=== PATIENT | female | born 1980 | race Caucasian/White ===

== ENCOUNTER 2016-07-12 06:58 | Emergency (ER) | payer OTHER ==
[~2016-07-12] VITALS: Ht 167.6 cm; Wt 70.5 kg
[~2016-07-12 06:58] MED LIST: GABA100C4 PO
[2016-07-12 07:03] VITALS: BP 103/72; PULSE 97; RESP 16; TEMP 97.7; O2SAT 93
[2016-07-12] MEDS ORDERED: GABA800T PO (07:17)
[2016-07-12] MEDS ORDERED: PROPARACAINE HCL 0.5% OPHT SOLN 15 ML BTL LEFT EYE ONE (07:30)
[2016-07-12] MEDS ORDERED: PERC5TAB12 PO (07:47)
[2016-07-12] MEDS ORDERED: ERYTOIN10 LEFT EYE (07:47)
--- NOTE | 2016-07-12 07:51 | PD ---
HPI Chief Complaint: Eye Problems/Injury Time Seen by Provider: 07:13 Travel History International Travel<30 days: No Contact w/Intl Traveler<30days: No Traveled to known affect area: No History of Present Illness HPI This patient complains of left eye pain and irritation and redness. She woke up this morning and felt like her left eye was itching. She rubbed it with her shirt. She developed pain in her left eye. There is no eye drainage. Her vision is normal usual baseline. She does require corrective lenses in the form of glasses but no contacts are worn. Pain severity is moderate PFSH Past Medical History Asthma: Yes Anxiety: Yes Cancer: No Cardiovascular Problems: No Diabetes: No Diminished Hearing: No Glaucoma: No Hepatitis: No Hiatal Hernia: No Hypertension: No Psychiatric: Yes (ANOREXIA NERVOSA) Respiratory: Yes (hx of asthma) Thyroid Disease: No Influenza Vaccination: No ?: Not LMP: IRREGULAR : 0 Para: 0 Past Surgical History Oral Surgery: Yes (teeth extracted) Pacemaker: No Other Surgery: Yes (ABCESS REMOVED FROM BREAST ) Social History Alcohol Use: Yes (2 LAVELL PER NIGHT) Tobacco Use: Yes (ONEPPD) Substance Use: No Allergies-Medications (Allergen,Severity, Reaction): Coded Allergies: Clindamycin (Verified Allergy, Severe, HIVES, 07/12/16) and swelling Amoxicillin (Verified Allergy, Mild, HIVES, 07/12/16) Reported Meds & Prescriptions Reported Meds & Active Scripts Active Reported Gabapentin 800 Mg Tab 800 Mg PO TID Review of Systems General / Constitutional: No: Fever Eyes: Positive: Redness, Foreign Body Sensation, Pain HENT: No: Headaches Cardiovascular: No: Chest Pain or Discomfort Physical Exam Narrative NECK: Symmetrical appearance, midline trachea. No mass or crepitus. Thyroid without enlargement, tenderness, or mass. Psych: Normal mood and affect. Normal insight and judgment. SKIN: Inspection shows no rash or ulcers. Palpation shows no induration or nodules. Left sclera shows some diffuse injection. Pupil function is normal I placed a drop of proparacaine in the left eye I did a fluorescein exam which shows a large corneal abrasion over the lower central region. No foreign body seen. Lids are everted and nothing seen Data Data Last Documented VS Vital Signs Date Time Temp Pulse Resp B/P Pulse Ox O2 Delivery O2 Flow Rate FiO2 07/12/16 07:03 97.7 97 16 103/72 93 Orders Proparacaine 0.5% Opth Soln (Alcaine 0.5 (07/12/16 07:30) [facility] Medical Decision Making Medical Screen Exam Complete: Yes Emergency Medical Condition: Yes Medical Record Reviewed: Yes Differential Diagnosis Corneal abrasion, foreign body, conjunctivitis Narrative Course I have reviewed the patient's electronic medical record. Patient is a large corneal abrasion left eye. I prescribed her erythromycin ointment and something for pain Symptoms resolved after the anesthetic drop Recommend she follow up with ophthalmology Diagnosis Primary Impression: Left cornea abrasion Qualified Code: S05.02XA - Left cornea abrasion, initial encounter Additional Instructions: The patient was advised to follow up with ophthalmology The patient was warned about potential sedation for the medications they will receive on prescription. Med/Other Pt SpecificInfo: Prescription(s) given Scripts Oxycodone-Acetaminophen (Percocet)5-325 mg Tab1 Tab PO Q6H PRN (PAIN) #20 TAB Ref 0 Prov:Carlitos Griffin MD 07/12/16 Erythromycin Opth Oint 5 Mg/Gm Oint1 Applic LEFT EYE QID #1 TUBE Ref 0 Prov:Carlitos Griffin MD 07/12/16 Disposition: 01 DISCHARGE HOME Condition: Stable Carlitos Griffin MD Jul 12, 2016 07:51
== END 2016-07-12 08:25 | disposition home or self-care (01) ==
LOC: PHED 06:58
DX: S05.02XA Injury of conjunctiva and corneal abrasion without foreign body, left eye, initial encounter (principal); Y93.89 Activity, other specified; Y92.9 Unspecified place or not applicable
CPT/HCPCS: 99283

== ENCOUNTER 2016-12-09 12:40 | Emergency (ER) | payer OTHER ==
[~2016-12-09 12:40] MED LIST changes: +ERYTOIN10 LEFT EYE; -GABA100C4 PO; +GABA800T PO; +PERC5TAB12 PO
[2016-12-09 12:46] VITALS: BP 116/77; PULSE 103; RESP 18; TEMP 99.6; O2SAT 95
[2016-12-09] MEDS ORDERED: MELO7.5T4 PO (13:05)
[2016-12-09] MEDS ORDERED: CYMB30CA PO (13:05)
--- NOTE | 2016-12-09 13:28 | PD ---
HPI Chief Complaint: Musculoskeletal Complaint Time Seen by Provider: 13:24 Travel History International Travel<30 days: No Contact w/Intl Traveler<30days: No Traveled to known affect area: No History of Present Illness HPI 36-year-old female presents to the emergency department for evaluation of right wrist pain that started last night when she tripped and fell. She states that she was carrying a large bag of dog food and cat litter when she tripped and fell hitting her nose and trying to catch himself with her right hand. She is right-handed. The patient reports pain and swelling to her right wrist. Patient reports history of neuropathy. She states that she is currently on Cymbalta, gabapentin, meloxicam. She denies any LOC. No lethargy or altered mental status. She denies any headache. No neck pain or back pain. No chest pain or abdominal pain. No vomiting. She takes no anticoagulants and has no bleeding disorders. Patient reports minimal pain to abrasion. Patient is unsure if her tetanus immunization is up-to-date. PFSH Past Medical History Asthma: Yes Anxiety: Yes Cancer: No Cardiovascular Problems: No Diabetes: No Diminished Hearing: No Glaucoma: No Hepatitis: No Hiatal Hernia: No Hypertension: No Psychiatric: Yes (ANOREXIA NERVOSA) Respiratory: Yes (hx of asthma) Thyroid Disease: No Influenza Vaccination: No ?: Not : 0 Para: 0 Past Surgical History Oral Surgery: Yes (teeth extracted) Pacemaker: No Other Surgery: Yes (ABCESS REMOVED FROM BREAST ) Social History Alcohol Use: Yes (2 LAVELL PER NIGHT) Tobacco Use: Yes (ONEPPD) Substance Use: No Allergies-Medications (Allergen,Severity, Reaction): Coded Allergies: Clindamycin (Verified Allergy, Severe, HIVES, 07/12/16) and swelling Amoxicillin (Verified Allergy, Mild, HIVES, 07/12/16) Reported Meds & Prescriptions Reported Meds & Active Scripts Active Reported Meloxicam 7.5 Mg Tab 7.5 Mg PO DAILY Cymbalta DR (Duloxetine HCl) 30 Mg Capdr 30 Mg PO DAILY Gabapentin 800 Mg Tab 800 Mg PO TID Review of Systems Except as stated in HPI: all other systems reviewed are Neg Physical Exam Narrative GENERAL: Well-nourished, well-developed female patient, ambulatory. Afebrile. SKIN: Focused skin assessment warm/dry. Patient is abrasion to the upper nose. HEAD: Normocephalic. ENT: Mucosa pink and moist. No erythema or exudates. No uvular edema. No uvular , palatal, or tonsillar deviation. Airway patent. Nasal turbinates appear normal without nasal blood, purulent drainage or septal hematoma. Bilateral tympanic membranes are clear without erythema or perforation. EYES: No scleral icterus. No injection or drainage. NECK: Supple, trachea midline. No JVD or lymphadenopathy. CARDIOVASCULAR: Regular rate and rhythm without murmurs, gallops, or rubs. Right radial pulse is 2+. RESPIRATORY: Breath sounds equal bilaterally. No accessory muscle use. Lungs sounds are clear to auscultation. GASTROINTESTINAL: Abdomen soft, non-tender, nondistended. MUSCULOSKELETAL: No cyanosis. Patient has swelling and tenderness over right medial and lateral wrist, worse over the right medial wrist. No snuffbox tenderness. BACK: Nontender without obvious deformity. No CVA tenderness. No midline spinal tenderness. She has full rotation of the cervical spine without pain or stiffness. Data Data Last Documented VS Vital Signs Date Time Temp Pulse Resp B/P Pulse Ox O2 Delivery O2 Flow Rate FiO2 12/09/16 12:46 99.6 103 18 116/77 95 Orders Morphine Inj (Morphine Inj) (12/09/16 13:30) Ondansetron Odt (Zofran Odt) (12/09/16 13:30) Wound Care (12/09/16 13:23) Tetanus/Diphtheria Tox Adult (Tetanus/Di (12/09/16 13:30) Wrist, Complete ([id number]) (12/09/16 ) Forearm (2vws) (12/09/16 ) [facility] Medical Decision Making Medical Screen Exam Complete: Yes Emergency Medical Condition: Yes Medical Record Reviewed: Yes Interpretation(s) x-ray right wrist - CONCLUSION: Nonspecific soft tissue swelling. No fracture or subluxation of the right wrist. x-ray right forearm - CONCLUSION: Intact right forearm. Distal soft tissue swelling, nonspecific. Differential Diagnosis Fracture versus sprain versus contusion versus abrasion Narrative Course 36-year-old female presents to the emergency department for evaluation of right wrist injury after she tripped and fell last night. According [place] [facility] had rules, imaging is not indicated at this time. X-ray of the right wrist and right forearm are ordered and pending. Tetanus immunization is updated. Patient is given morphine 4 mg IM, Zofran 4 mg ODT. X-ray of the right wrist shows nonspecific soft tissue swelling, no fracture or subluxation of the right wrist. X-ray of the right forearm is intact right forearm, distal soft tissue swelling, nonspecific. Patient will be placed in a Velcro wrist splint. She'll be discharged prescription for ibuprofen for pain. She verbalizes agreement and understanding. The patient was discharged in stable condition with instructions, including return instructions and follow up instructions. Diagnosis Primary Impression: Right wrist sprain Qualified Code: S63.501A - Sprain of right wrist, initial encounter Referrals: Primary Care Physician call for appointment Patient Instructions: General Instructions, Wrist Sprain (ED) Additional Instructions: Take ibuprofen as instructed as needed with food for pain. Do not take other anti-inflammatories with this including meloxicam, Aleve. Ice for 20 minutes 4-5 times daily. Wear Velcro wrist splint as needed for support. Follow-up with your primary care physician. Return to the emergency department for any acute worsening of symptoms. Med/Other Pt SpecificInfo: Prescription(s) given Scripts Ibuprofen 600 Mg [id number] Mg PO TID PRN (PAIN SCALE 1 TO 10) #21 TAB Ref 0 Prov:Demi Marinelli 12/09/16 Disposition: 01 DISCHARGE HOME Condition: Stable Demi Marinelli Dec 09, 2016 13:28
[2016-12-09] MEDS ORDERED: TETANUS/DIPHTHERIA TOXOID ADULT 0.5 ML VIAL IM ONE (13:30)
[2016-12-09] MEDS ORDERED: MORPHINE SULFATE 4 MG/ML INJ IM ONE (13:30)
[2016-12-09] MEDS ORDERED: ONDANSETRON ODT 4 MG TAB PO ONE (13:30)
--- NOTE | 2016-12-09 14:17 | RADRPT ---
EXAM DATE/TIME: 12/09/2016 13:44 [facility] COMPARISON: No previous studies available for comparison. INDICATIONS : Right wrist pain status post fall from standing. MEDICAL HISTORY : None. SURGICAL HISTORY : None. ENCOUNTER: Initial ACUITY: 1 day PAIN SCORE: 10/10 LOCATION: Right wrist. FINDINGS: There is dorsal predominant soft tissue swelling overlying the carpus. No fractures or subluxations a re demonstrated. No radiopaque foreign body. CONCLUSION: Nonspecific soft tissue swelling. No fracture or subluxation of the right wrist. Izaiah Spence MD on December 09, 2016 at 14:15 Board Certified Radiologist. This report was verified electronically.
--- NOTE | 2016-12-09 14:17 | RADRPT ---
EXAM DATE/TIME: 12/09/2016 13:43 [facility] COMPARISON: No previous studies available for comparison. INDICATIONS : Right wrist pain status post fall from standing. MEDICAL HISTORY : None. SURGICAL HISTORY : None. ENCOUNTER: Initial ACUITY: 1 day PAIN SCORE: 10/10 LOCATION: Right wrist. FINDINGS: Soft tissue swelling seen dorsally of the distal forearm. Right radius and ulna are intact and have n ormal morphology. No radiopaque foreign body demonstrated. CONCLUSION: Intact right forearm. Distal soft tissue swelling, nonspecific. Izaiah Spence MD on December 09, 2016 at 14:14 Board Certified Radiologist. This report was verified electronically.
[2016-12-09] MEDS ORDERED: IBUP-232 PO (14:24)
== END 2016-12-09 14:45 | disposition home or self-care (01) ==
LOC: PHED 12:40
DX: S63.501A Unspecified sprain of right wrist, initial encounter (principal); S00.31XA Abrasion of nose, initial encounter; W01.0XXA Fall on same level from slipping, tripping and stumbling without subsequent striking against object, initial encounter; Y93.89 Activity, other specified; Z23 Encounter for immunization
CPT/HCPCS: 73090; 73110; 90471; 90714; 96372; 99284; J2270; L3908

== ENCOUNTER 2017-06-09 18:17 | Emergency (ER) | payer OTHER ==
[~2017-06-09] VITALS: Ht 170.2 cm; Wt 75.2 kg
[~2017-06-09 18:17] MED LIST changes: +CYMB30CA PO; -ERYTOIN10 LEFT EYE; +IBUP-232 PO; +MELO7.5T27 PO; -PERC5TAB12 PO
[2017-06-09 18:25] VITALS: BP 111/76; PULSE 98; RESP 16; TEMP 98.1; O2SAT 95
[2017-06-09] MEDS ORDERED: DULO1CAP PO (19:26)
[2017-06-09] MEDS ORDERED: NABU1TAB37 PO (19:26)
[2017-06-09] MEDS ORDERED: VENTAER INH (19:26)
[2017-06-09] MEDS ORDERED: INDO50CA PO (19:26)
[2017-06-09] MEDS ORDERED: DICL1KIT5 TOPICAL (19:26)
[2017-06-09] MEDS ORDERED: CYMB30CA PO ×2 (19:28→19:30)
--- NOTE | 2017-06-09 19:28 | PD ---
HPI Chief Complaint: Edema Time Seen by Provider: 19:13 Travel History International Travel<30 days: No Contact w/Intl Traveler<30days: No Traveled to known affect area: No History of Present Illness HPI The patient is a 37-year-old female that states she has need of a refill on Cymbalta, she doesn't see her Dr. Nielson 12% she has run out of it today. She also takes a friend's Subutex and she states her feet swell every time she takes this. She does have feet swelling. Her been swelling for 4 days. She states she will no longer take any more Subutex. The patient has chronic pain and is on gabapentin and meloxicam for this. She does have a history of alcohol abuse and possible opiate abuse. PFSH Past Medical History Asthma: Yes Anxiety: Yes Cancer: No Cardiovascular Problems: No Diabetes: No Diminished Hearing: No Glaucoma: No Hepatitis: No Hiatal Hernia: No Hypertension: No Psychiatric: Yes (ANOREXIA NERVOSA) Respiratory: Yes (hx of asthma) Thyroid Disease: No ?: Not : 0 Para: 0 Past Surgical History Oral Surgery: Yes (teeth extracted) Pacemaker: No Other Surgery: Yes (ABCESS REMOVED FROM BREAST ) Social History Alcohol Use: Yes (2 LAVELL PER NIGHT) Tobacco Use: Yes (ONEPPD) Substance Use: No Allergies-Medications (Allergen,Severity, Reaction): Coded Allergies: clindamycin (Unverified Allergy, Severe, HIVES, 06/09/17) and swelling amoxicillin (Unverified Allergy, Mild, HIVES, 06/09/17) Reported Meds & Prescriptions Reported Meds & Active Scripts Active Ibuprofen 600 Mg Tab 600 Mg PO TID PRN Reported Meloxicam 7.5 Mg Tab 7.5 Mg PO DAILY Cymbalta DR (Duloxetine HCl) 30 Mg Capdr 30 Mg PO DAILY Gabapentin 800 Mg Tab 800 Mg PO TID Review of Systems Except as stated in HPI: all other systems reviewed are Neg Physical Exam Narrative GENERAL: Well-nourished, well-developed patient in no apparent distress except for the bilateral feet swelling. Her vital signs are normal. SKIN: Focused skin assessment warm/dry. HEAD: Normocephalic. EYES: No scleral icterus. No injection or drainage. NECK: Supple, trachea midline. No JVD or lymphadenopathy. CARDIOVASCULAR: Regular rate and rhythm without murmurs, gallops, or rubs. RESPIRATORY: Breath sounds equal bilaterally. No accessory muscle use. GASTROINTESTINAL: Abdomen soft, non-tender, nondistended. MUSCULOSKELETAL: No cyanosis, but there is very slight edema and slight erythema over both feet. There is no edema of the lower leg. Homans sign is negative and there is no cord palpated in the calf.. BACK: Nontender without obvious deformity. No CVA tenderness. Data Data Last Documented VS Vital Signs Date Time Temp Pulse Resp B/P (MAP) Pulse Ox O2 Delivery O2 Flow Rate FiO2 06/09/17 18:25 98.1 98 16 111/76 (88) 95 MDM Medical Decision Making Medical Screen Exam Complete: Yes Emergency Medical Condition: Yes Medical Record Reviewed: Yes Differential Diagnosis Medication side effect, medication refill, drug seeking behavior Narrative Course The patient wanted to leave the soonest she found out that she was not getting any narcotic pain medications. The patient will discontinue taking her friend' s Subutex. She is given a refill of Cymbalta 30 mg #10. Diagnosis Primary Impression: Medication side effect Additional Impression: Medication refill Additional Instructions: Follow-up with your primary care physician on the as scheduled. You are given enough Cymbalta the last few until then. Do not take any more Subutex. Med/Other Pt SpecificInfo: Prescription(s) given Scripts Duloxetine (Cymbalta DR) 30 Mg Capdr 30 MG PO DAILY, #10 CAP 0 Refills Prov: Dustin Alvarez MD 06/09/17 Disposition: 01 DISCHARGE HOME Condition: Stable Dustin Alvarez MD Jun 09, 2017 19:28
== END 2017-06-09 19:40 | disposition home or self-care (01) ==
LOC: PHED 18:17
DX: Z76.0 Encounter for issue of repeat prescription (principal); T40.4X5A Adverse effect of other synthetic narcotics, initial encounter; M79.89 Other specified soft tissue disorders; G89.29 Other chronic pain; J45.909 Unspecified asthma, uncomplicated; F41.9 Anxiety disorder, unspecified; F17.200 Nicotine dependence, unspecified, uncomplicated; Z79.899 Other long term (current) drug therapy; Z88.0 Allergy status to penicillin
CPT/HCPCS: 99283

== ENCOUNTER 2017-08-21 11:47 | Emergency (ER) | payer OTHER ==
[~2017-08-21] VITALS: Ht 170.2 cm; Wt 69.0 kg
[~2017-08-21 11:47] MED LIST changes: +DICL1KIT5 TOPICAL; +DULO1CAP PO; +INDO50CA PO; +NABU1TAB37 PO; +VENTAER INH
[2017-08-21 11:54] VITALS: BP 134/91; PULSE 84; RESP 18; TEMP 97.3; O2SAT 98
--- NOTE | 2017-08-21 12:14 | PD ---
HPI Chief Complaint: Injury Time Seen by Provider: 11:56 Travel History International Travel<30 days: No Contact w/Intl Traveler<30days: No Traveled to known affect area: No History of Present Illness HPI 37-year-old female presents emergency department for evaluation of right heel pain that started approximate 5 days ago. Patient states that she was playing with her daughter in the pool and believes she may have jumped too much resulting in this heel pain. Patient states her pain is throbbing, moderate in severity, worse with movement. Says she is used every [id number] ibuprofen and her neuropathy medication, gabapentin, without significant improvement. She denies any unusual numbness or tingling although states she does have chronic tingling in her toes. States pain is located in the right lateral aspect of the heel and points to the posterior talofibular ligament. Says she has some diminished range of motion secondary to pain. She denies any inversion type of injuries. Denies any other inciting events. PFSH Past Medical History Asthma: Yes Anxiety: Yes Depression: Yes Cancer: No Cardiovascular Problems: No Diabetes: No Diminished Hearing: No Glaucoma: No Hepatitis: No Hiatal Hernia: No Hypertension: No Neurologic: Yes (JONA LE NEUROPATHY) Psychiatric: Yes (ANOREXIA NERVOSA) Respiratory: Yes (hx of asthma) Thyroid Disease: No Influenza Vaccination: No ?: Not LMP: DOESNT REMEMBER : 0 Para: 0 Past Surgical History Oral Surgery: Yes (teeth extracted) Pacemaker: No Other Surgery: Yes (ABCESS REMOVED FROM BREAST and Buttock) Social History Alcohol Use: Yes (2 LAVELL PER NIGHT) Tobacco Use: Yes (ONEPPD) Substance Use: No Allergies-Medications (Allergen,Severity, Reaction): Coded Allergies: clindamycin (Verified Allergy, Severe, HIVES, 06/09/17) and swelling amoxicillin (Verified Allergy, Mild, HIVES, 06/09/17) Reported Meds & Prescriptions Reported Meds & Active Scripts Active Cymbalta DR (Duloxetine HCl) 30 Mg Capdr 30 Mg PO DAILY Ibuprofen 600 Mg Tab 600 Mg PO TID PRN Reported Ventolin Hfa 18 GM Inh (Albuterol Sulfate) 90 Mcg/Act Aer 2 Puff INH Q4-6H PRN Diclo Gel Topical (Diclofenac Sodium) 1% Gel 1 Applic TOPICAL QID Meloxicam 7.5 Mg Tab 7.5 Mg PO DAILY Cymbalta DR (Duloxetine HCl) 30 Mg Capdr 30 Mg PO DAILY Gabapentin 800 Mg Tab 800 Mg PO TID Review of Systems Except as stated in HPI: all other systems reviewed are Neg Physical Exam Narrative GENERAL: Well-nourished, well-developed patient. SKIN: Focused skin assessment warm/dry. HEAD: Normocephalic. EYES: No scleral icterus. No injection or drainage. NECK: Supple, trachea midline. No JVD or lymphadenopathy. CARDIOVASCULAR: Regular rate and rhythm without murmurs, gallops, or rubs. RESPIRATORY: Breath sounds equal bilaterally. No accessory muscle use. MUSCULOSKELETAL: No cyanosis, or edema. Right foot-TTP to the posterior TFL and lateral heel. Edema and ecchymosis present in the immediate area. Limited range of motion to flexion extension of the ankle secondary to pain. Neurovascular intact. BACK: Nontender without obvious deformity. No CVA tenderness. Data Data Last Documented VS Vital Signs Date Time Temp Pulse Resp B/P (MAP) Pulse Ox O2 Delivery O2 Flow Rate FiO2 08/21/17 11:54 97.3 84 18 134/91 (105) 98 Room Air Orders Orders Foot, Complete ([id number]) (08/21/17 ) MDM Medical Decision Making Medical Screen Exam Complete: Yes Emergency Medical Condition: Yes Differential Diagnosis Right heel fracture, right foot fracture, ankle sprain Narrative Course 37 y female with a history of neuropathy presents emergency department for evaluation of right foot pain this started approximately 5 days ago after playing in the pool with her daughter. Vital signs are stable. X-rays ordered for evaluation. No acute process on x-ray. Patient will be placed in an ankle stirrup as she did have some tenderness palpation of the ankle joint. Patient does have a cane and will ambulate with the cane for assistance. She is advised to follow-up with her primary care physician for further treatment and evaluation. Consider orthopedics for further evaluation and treatment. Diagnosis Primary Impression: Foot contusion Qualified Codes: S90.31XA - Contusion of right foot, initial encounter Referrals: Primary Care Physician Additional Instructions: Use ice or heat for symptom relief. Elevate the joint above the heart to reduce swelling. You may use compression with Ike wrap or similar to reduce swelling. If symptoms persist or worsen, return to the emergency department. Follow up with your primary care physician within 2 days. Recommend you wear tennis shoes or shoes with plenty of support. Avoid sandals until your symptoms resolve. Disposition: 01 DISCHARGE HOME Condition: Stable Brigid Forrest Aug 21, 2017 12:14
--- NOTE | 2017-08-21 13:39 | RADRPT ---
EXAM DATE/TIME: 08/21/2017 12:47 [facility] COMPARISON: No previous studies available for comparison. FINDINGS: Three view examination of the right foot demonstrates no soft tissue swelling, dislocation, or fractu re. The tarsal bones appear intact. The interphalangeal and metatarsophalangeal joints are intact. The calcaneus is intact. Bony mineralization is normal. CONCLUSION: No acute disease. Missael Bahena MD on August 21, 2017 at 13:36 Board Certified Radiologist. This report was verified electronically.
== END 2017-08-21 14:12 | disposition home or self-care (01) ==
LOC: PHEFT 11:47
DX: S90.31XA Contusion of right foot, initial encounter (principal); X50.3XXA Overexertion from repetitive movements, initial encounter; Y93.11 Activity, swimming; G62.9 Polyneuropathy, unspecified; J45.909 Unspecified asthma, uncomplicated; F32.9 Major depressive disorder, single episode, unspecified; F41.9 Anxiety disorder, unspecified; F17.210 Nicotine dependence, cigarettes, uncomplicated
CPT/HCPCS: 73630; 99283; L1906